=== PATIENT | female | born 1980 | race Caucasian/White ===

== ENCOUNTER 2017-10-13 10:24 | Observation (INO) | payer OTHER ==
[~2017-10-13 10:24] MED LIST: DEXAMETHASONE SOD PHOS 20 MG/5 ML VIAL.; LIDOCAINE 1% PF 2 ML VIAL. ID; LIDOCAINE 2% PF Vial for OR 5 ML VIAL.; MIDAZOLAM HCL/PF 2 MG/2 ML VIAL.; ONDANSETRON PF 4 MG/2 ML VIAL.; ONDANSETRON PF 4 MG/2 ML VIAL. IV; PROPOFOL 20 ML IV; ROCURONIUM 50 MG/5 ML VIAL.; fentaNYL PF VIAL 100 MCG/2 ML VIAL; fentaNYL PF VIAL 100 MCG/2 ML VIAL IV
[2017-10-13 11:20] LABS: ADD MAN DIFF? NO
[2017-10-13 11:24] LABS: BASO # 0.1 x10^3/uL (0.0-0.2); BASO % 1 % (0-3); EOS # 0.2 x10^3/uL (0.0-0.7); EOS % 2 % (0-3); HEMATOCRIT 38.6 % (36.0-47.0); HEMOGLOBIN 13.1 g/dL (12.0-15.5); LYMPH # 2.9 x10^3/uL (1.0-4.8); LYMPH % 29 % (24-48); MEAN CORPUSCULAR HEMOGLOBIN 30 pg (25-35); MEAN CORPUSCULAR HGB CONC 34 g/dL (31-37); MEAN CORPUSCULAR VOLUME 88 fL (79-100); MONO # 0.8 x10^3/uL (0.0-1.1); MONO % 8 % (0-9); NEUT # 6.1 x10^3uL (1.8-7.7); NEUT % 60 % (31-73); PLATELET COUNT 288 x10^3/uL (140-400); RED CELL DISTRIBUTION WIDTH 14.6 % (11.5-14.5); WHITE BLOOD COUNT 10.1 x10^3/uL (4.0-11.0)
[2017-10-13 11:31] LABS: ANION GAP 10 (6-14); BLOOD UREA NITROGEN 11 mg/dL (7-20); CALCIUM 8.7 mg/dL (8.5-10.1); CARBON DIOXIDE 25 mmol/L (21-32); CHLORIDE 104 mmol/L (98-107); CREATININE 0.8 mg/dL (0.6-1.0); GFR 80.7; GLUCOSE 89 mg/dL (70-99); POTASSIUM 3.9 mmol/L (3.5-5.1); SODIUM 139 mmol/L (136-145)
[2017-10-13 11:37] LABS: ALBUMIN 3.4 g/dL (3.4-5.0); TOTAL BILIRUBIN 0.3 mg/dL (0.2-1.0)
[2017-10-13] MEDS: IV RINGERS,LACTATED 1000ML 1,000 ML IV ×2 (11:45→17:03)
[2017-10-13] MEDS ORDERED: SUCCINYLCHOLINE 200 MG/10 ML VIAL. (12:23)
[2017-10-13] MEDS ORDERED: GLUCAGON,HUMAN RECOMBINANT 1 MG/ML VIAL. (12:24)
[2017-10-13] MEDS: ceFAZolin SODIUM 3 GM in IV DEXTROSE 5% 100ML 100 ML IV (13:54)
[2017-10-13] MEDS ORDERED: fentaNYL PF VIAL 100 MCG/2 ML VIAL (13:59)
[2017-10-13] MEDS ORDERED: GLYCOPYRROLATE 1 MG/5 ML VIAL. (14:12)
[2017-10-13] MEDS: BUPIVACAINE-EPI 0.25%-1:200000 50 ML VIAL. (14:21)
[2017-10-13] MEDS ORDERED: NEOSTIGMINE METHYLSULFATE 5 MG/5 ML SYRINGE. (14:36)
[2017-10-13] MEDS ORDERED: DESFLURANE 61 TO 120 MINUTES IH (14:36)
[2017-10-13] MEDS: IOHEXOL 300 MG/ML 100ML VIAL. (14:39)
[2017-10-13] MEDS ORDERED: KETOROLAC 30 MG/ML INJ FOR OR. INJ (14:43)
[2017-10-13] MEDS: fentaNYL PF VIAL 100 MCG/2 ML VIAL IV ×4 (15:36→16:24)
[2017-10-13] MEDS: MORPHINE SULFATE 2 MG/ML DISP.SYRIN. IV ×3 (15:43→16:15)
[2017-10-13] MEDS: oxyCODONE/APAP 7.5/325 1 TAB TABLET PO (15:45)
[2017-10-13] MEDS: PROCHLORPERAZINE 10 MG/2 ML VIAL. IV (16:13)
[2017-10-13] MEDS ORDERED: 0.9 % SODIUM CHLORIDE 10 ML DISP.SYRIN. IV (17:30)
[2017-10-13] MEDS ORDERED: PROCHLORPERAZINE 10 MG/2 ML VIAL. IV (17:30)
[2017-10-13] MEDS: oxyCODONE/APAP 5/325 1 TAB TABLET PO ×2 (18:27→22:45)
[2017-10-13] MEDS: ONDANSETRON PF 4 MG/2 ML VIAL. IV (18:30)
[2017-10-13] MEDS: POTASSIUM CL 20MEQ-0.45% NACL 1,000 ML IV (18:37)
[2017-10-13] MEDS: ACETAMINOPHEN 325 MG TABLET. PO (20:55)
[2017-10-14] MEDS: POTASSIUM CL 20MEQ-0.45% NACL 1,000 ML IV (03:24)
[2017-10-14] MEDS: oxyCODONE/APAP 5/325 1 TAB TABLET PO ×2 (05:55→10:31)
== END 2017-10-14 12:55 | disposition home or self-care (01) ==
LOC: SURG 10:24 → 4 NORTH 17:15
DX: K80.20 Calculus of gallbladder without cholecystitis without obstruction (principal); E66.9 Obesity, unspecified
CPT/HCPCS: 36415; 74300; 80048; 82040; 82247; 85025; 88304; 96374; A7015; G0378; G0379; J0330; J0780; J1100; J1610; J1885; J2001; J2250; J2270; J2405; J2704; J2710; J3010; J3490; J7030; J7120; Q9967